=== PATIENT | female | born 1985 | race Hispanic/Latino ===

== ENCOUNTER 2016-05-02 16:21 | Emergency (ER) | payer OTHER ==
[~2016-05-02] VITALS: Ht 162.6 cm; Wt 106.6 kg
[2016-05-02] MEDS ORDERED: NORCO, ANEXSIA 5/325MG TABLET (HYDROcodone/ACETAMINOPHEN) As Ordered ONE (17:32)
[2016-05-02] MEDS ORDERED: NAPROXEN 250 MG TAB As Ordered ONE (17:32)
[2016-05-02] MEDS ORDERED: PENICILLIN V POTASSIUM 500 MG TAB PO ONE (17:45)
--- NOTE | 2016-05-02 18:02 | EDDOCDS ---
Nurse's Notes [facility] Name: Zuleima Ely Age: 31 yrs Sex: Female : 1985 Arrival Date: 05/02/2016 Time: 16:21 Bed I1 23 Private MD: NO PRIMARY PHYSICIAN, . Diagnosis: Dental caries;Jaw pain Presentation: 05/02 17:04 Presenting complaint: Patient states: tooth ache since last night. Adult Sepsis rs3 Screening: The patient does not have new or worsening altered mentation. Patient's respiratory rate is less than 22. Systolic blood pressure is greater than 100. Patient has a qSOFA score of 0- Negative Sepsis Screen. Suicide/Homicide risk assessment- the patient denies having any suicidal and/or homicidal ideations and does not present with any other emotional, behavioral or mental health complaints. Status: Patient is not a light fixture servicer or dependent. Transition of care: patient was not received from another setting of care. 17:04 Acuity: JOLENE Level 5 rs3 17:04 Method Of Arrival: Walkin/Carried/Asstd rs3 Triage Assessment: 17:06 General: Appears in no apparent distress. Pain: Location: mouth. HIV screening NA for rs3 this visit Offered previously. EENT: Reports pain Pain is 9 out of 10 on a pain scale. Historical: - Allergies: no known allergies; - Home Meds: 1. Tylenol 500 Oral - PMHx: none; - PSHx: Cervical Fusion; Myringotomy; left ear surgery; - Social history: Smoking status: Patient uses tobacco products, light tobacco smoker. No barriers to communication noted, The patient speaks fluent Swedish. - Family history: Not pertinent. - : The pt / caregiver states he / she is not on anticoagulants. Home medication list is obtained from the patient. - Exposure Risk Screening:: None identified. Screenin:52 Screening information is obtained from the patient. Fall risk: No risks identified. hs1 Assistance ADL's: requires no assistance with activities of daily living. Abuse/DV Screen: The patient / caregiver reports he/she is: not in a situation that causes fear, pain or injury. Nutritional screening: No deficits noted. Advance Directives: There is no active DNR order. home support is adequate. Assessment: 17:34 General: Appears uncomfortable, Behavior is appropriate for age, cooperative. Pain: hs1 Location: mouth Pain currently is 9 out of 10 on a pain scale. Cardiovascular: No deficits noted. Respiratory: Airway is patent Respiratory effort is even, unlabored, Respiratory pattern is regular, symmetrical. Derm: Skin is pink, warm & dry. normal. Vital Signs: 16:23 BP 159 / 88; Pulse 90; Resp 18 S; Temp 98.3(O); Pulse Ox 100% on R/A; Weight 106.59 kg dd6 (R); Height 5 ft. 4 in. (162.56 cm) (R); Pain 8/10; 17:51 BP 164 / 84 RA Sitting (auto/reg); Pulse 85; Resp 18; Temp 98.4(O); Pulse Ox 98% on jrd R/A; Pain 10/10; 16:23 Body Mass Index 40.34 (106.59 kg, 162.56 cm) dd6 Vitals: 16:23 Log In Time: May 02, 2016 at 16:19. dd6 ED Course: 16:23 Patient visited by Korey Booker PCA. dd6 16:23 NO PRIMARY PHYSICIAN, . is Private Physician. dd6 16:23 Patient moved to Waiting dd6 16:24 Patient moved to Pre RCE dd6 16:54 [facility] 16:54 Patient moved to I10 / 23 dls 17:05 Patient visited by Nacny Franco FNP. le 17:05 Patient visited by Nancy Franco FNP. le 17:05 Triage Initiated rs3 17:19 Nikolas Marquez is Referral Physician. le 17:19 Marko Ford is Referral Physician. le 17:24 [facility] Payment Agreement was scanned into [employer] and attached to record. zo 17:51 Patient visited by Trevor Rainey PCA. jrd 17:53 No IV's were initiated during this patient's visit. No procedures done that require hs1 assistance. 17:54 The patient / caregiver is instructed regarding the plan of care and ED course. hs1 Administered Medications: 17:39 Drug: Naproxen 500 mg [naproxen 250 mg tablet (2 tabs)] Route: PO; hs1 17:52 Follow up: Response: Pt left department before re-evaluation is appropriate hs1 17:51 Drug: HYDROcodone-acetaminophen 1 tabs [hydrocodone 5 mg-acetaminophen 325 mg tablet (1 hs1 tabs)] Route: PO; 17:51 Follow up: Response: Confirmed pt not driving.; Pt left department before re-evaluation hs1 is appropriate 17:51 Drug: Penicillin VK 500 mg [penicillin V potassium 250 mg tablet (2 tabs)] Route: PO; hs1 17:52 Follow up: Response: No significant change. hs1 Order Results: There are currently no results for this order. Outcome: 17:20 Discharge ordered by Provider. le 17:53 Discharge Assessment: Patient awake, alert and oriented x 3. No cognitive and/or hs1 functional deficits noted. Patient verbalized understanding of disposition instructions. patient administered narcotics - yes. Pt provided with safe discharge. The following High Risk Discharge criteria are identified: None. Discharged to home ambulatory. Condition: stable. Discharge instructions given to patient, Instructed on discharge instructions, follow up and referral plans. medication usage, Demonstrated understanding of instructions, medications, Pt was receptive of discharge instructions/ teaching. Prescriptions given X 3. No special radiology studies were completed. Property sent home with patient. 18:02 Patient left the ED. hs1 Signatures: Kasandra Langley, RN RN dls Sara Lr Lisa, BUSINESS PROCESS CONSULTANT BUSINESS PROCESS CONSULTANT Korey Toledo, ELECTRIC METER INSTALLER HELPER ELECTRIC METER INSTALLER HELPER dd6 Danielle rTuong RN RN rs3 Tri Gaona RN RN hs1 Trevor Rainey, ELECTRIC METER INSTALLER HELPER ELECTRIC METER INSTALLER HELPER jrd MTDD
--- NOTE | 2016-05-02 18:02 | EDDOCDS ---
Physician Documentation [facility] Name: Zuleima Ely Age: 31 yrs Sex: Female : 1985 Arrival Date: 05/02/2016 Time: 16:21 Bed I1 Private MD: NO PRIMARY PHYSICIAN, . Disposition: 05/02 17:22 Critical Care: Critical care not applicable. le Disposition: 05/02/16 17:20 Discharged to Home/Self Care. Impression: Dental caries, Jaw pain. - Condition is Stable. - Discharge Instructions: Dental Pain. - Prescriptions for Naprosyn 500 mg Oral Tablet - take 1 tablet by ORAL route 2 times per day take with food; 30 tablet. [place] 5- 325 mg Oral Tablet - take 1 tablet by ORAL route every 6 hours As needed MDD: 4 tabs; 6 tablet. penicillin V potassium 500 mg Oral Tablet - take 1 tablet by ORAL route 4 times per day for 10 days; 40 tablet. - Medication Reconciliation, Local Pharmacy Hours form. - Follow up: Nikolas Marquez; When: Call to arrange an appointment; Reason: Recheck today's complaints, Continuance of care. Follow up: Your, Dentist; When: 1 - 2 days; Reason: Recheck today's complaints, Continuance of care. - Problem is an acute exacerbation. - Symptoms are unchanged. - Notes: Return to the ED for facial swelling, inablity to open your mouth more than the width of 2 fingers, difficulty swallowing/drooling, fever >101.5, difficulty breathing or any other concerns Historical: - Allergies: no known allergies; - Home Meds: 1. Tylenol 500 Oral - PMHx: none; - PSHx: Cervical Fusion; Myringotomy; left ear surgery; - Social history: Smoking status: Patient uses tobacco products, light tobacco smoker. No barriers to communication noted, The patient speaks fluent Romanian. - Family history: Not pertinent. - : The pt / caregiver states he / she is not on anticoagulants. Home medication list is obtained from the patient. - Exposure Risk Screening:: None identified. Vital Signs: 16:23 BP 159 / 88; Pulse 90; Resp 18 S; Temp 98.3(O); Pulse Ox 100% on R/A; Weight 106.59 kg dd6 / 234.99 lbs (R); Height 5 ft. 4 in. (162.56 cm) (R); Pain 8/10; 17:51 BP 164 / 84 RA Sitting (auto/reg); Pulse 85; Resp 18; Temp 98.4(O); Pulse Ox 98% on jrd R/A; Pain 10/10; 16:23 Body Mass Index 40.34 (106.59 kg, 162.56 cm) dd6 MDM: 17:13 HYDROcodone-acetaminophen 5 mg-325 mg 1 tabs PO once ordered. le 17:13 Naproxen 500 mg PO once; administer with food or milk ordered. le 17:13 Penicillin VK 500 mg PO once ordered. le 17:23 Financial registration complete. zo 17:24 [facility] Payment Agreement was scanned into [employer] and attached to record. zo Administered Medications: 17:39 Drug: Naproxen 500 mg [naproxen 250 mg tablet (2 tabs)] Route: PO; hs1 17:52 Follow up: Response: Pt left department before re-evaluation is appropriate hs1 17:51 Drug: HYDROcodone-acetaminophen 1 tabs [hydrocodone 5 mg-acetaminophen 325 mg tablet (1 hs1 tabs)] Route: PO; 17:51 Follow up: Response: Confirmed pt not driving.; Pt left department before re-evaluation hs1 is appropriate 17:51 Drug: Penicillin VK 500 mg [penicillin V potassium 250 mg tablet (2 tabs)] Route: PO; hs1 17:52 Follow up: Response: No significant change. hs1 Signatures: Sara Lr Lisa, Danielle Ortega RN RN rs3 Tri Gaona RN RN hs1 The chart was reviewed and I authenticate all verbal orders and agree with the evaluation and treatment provided.Attachments: 17:24 [facility] Payment Agreement zo MTDD
--- NOTE | 2016-05-04 19:03 | EDDOCDS ---
Physician Documentation [facility] Name: Zuleima Ely Age: 31 yrs Sex: Female : 1985 Arrival Date: 05/02/2016 Time: 16:21 Bed I1 Private MD: NO PRIMARY PHYSICIAN, . Disposition: 05/02 17:22 Critical Care: Critical care not applicable. le Disposition: 05/02/16 17:20 Discharged to Home/Self Care. Impression: Dental caries, Jaw pain. - Condition is Stable. - Discharge Instructions: Dental Pain. - Prescriptions for Naprosyn 500 mg Oral Tablet - take 1 tablet by ORAL route 2 times per day take with food; 30 tablet. [place] 5- 325 mg Oral Tablet - take 1 tablet by ORAL route every 6 hours As needed MDD: 4 tabs; 6 tablet. penicillin V potassium 500 mg Oral Tablet - take 1 tablet by ORAL route 4 times per day for 10 days; 40 tablet. - Medication Reconciliation, Local Pharmacy Hours form. - Follow up: Nikolas Marquez; When: Call to arrange an appointment; Reason: Recheck today's complaints, Continuance of care. Follow up: Your, Dentist; When: 1 - 2 days; Reason: Recheck today's complaints, Continuance of care. - Problem is an acute exacerbation. - Symptoms are unchanged. - Notes: Return to the ED for facial swelling, inablity to open your mouth more than the width of 2 fingers, difficulty swallowing/drooling, fever >101.5, difficulty breathing or any other concerns Historical: - Allergies: no known allergies; - Home Meds: 1. Tylenol 500 Oral - PMHx: none; - PSHx: Cervical Fusion; Myringotomy; left ear surgery; - Social history: Smoking status: Patient uses tobacco products, light tobacco smoker. No barriers to communication noted, The patient speaks fluent Croatian. - Family history: Not pertinent. - : The pt / caregiver states he / she is not on anticoagulants. Home medication list is obtained from the patient. - Exposure Risk Screening:: None identified. Vital Signs: 16:23 BP 159 / 88; Pulse 90; Resp 18 S; Temp 98.3(O); Pulse Ox 100% on R/A; Weight 106.59 kg dd6 / 234.99 lbs (R); Height 5 ft. 4 in. (162.56 cm) (R); Pain 8/10; 17:51 BP 164 / 84 RA Sitting (auto/reg); Pulse 85; Resp 18; Temp 98.4(O); Pulse Ox 98% on jrd R/A; Pain 10/10; 16:23 Body Mass Index 40.34 (106.59 kg, 162.56 cm) dd6 MDM: 17:13 HYDROcodone-acetaminophen 5 mg-325 mg 1 tabs PO once ordered. le 17:13 Naproxen 500 mg PO once; administer with food or milk ordered. le 17:13 Penicillin VK 500 mg PO once ordered. le 17:23 Financial registration complete. zo 17:24 [facility] Payment Agreement was scanned into [employer] system and attached to record. zo 21:43 T-Sheet-- Draft Copy was scanned into [employer] system and attached to record. klr Administered Medications: 17:39 Drug: Naproxen 500 mg [naproxen 250 mg tablet (2 tabs)] Route: PO; hs1 17:52 Follow up: Response: Pt left department before re-evaluation is appropriate hs1 17:51 Drug: HYDROcodone-acetaminophen 1 tabs [hydrocodone 5 mg-acetaminophen 325 mg tablet (1 hs1 tabs)] Route: PO; 17:51 Follow up: Response: Confirmed pt not driving.; Pt left department before re-evaluation hs1 is appropriate 17:51 Drug: Penicillin VK 500 mg [penicillin V potassium 250 mg tablet (2 tabs)] Route: PO; hs1 17:52 Follow up: Response: No significant change. hs1 Signatures: Sara Lr Lisa, PATIENT INSURANCE CLERK PATIENT INSURANCE CLERKDanielle SonRN RN rs3 Tri Gaona RN RN hs1 Kayleen Irwin klr The chart was reviewed and I authenticate all verbal orders and agree with the evaluation and treatment provided.Attachments: 17:24 [facility] Payment Agreement zo 21:43 T-Sheet-- Draft Copy klr Chart Complete MTDD
--- NOTE | 2016-05-04 19:03 | EDDOCDS ---
Nurse's Notes [facility] Name: Zuleima Ely Age: 31 yrs Sex: Female : 1985 Arrival Date: 05/02/2016 Time: 16:21 Bed I1 23 Private MD: NO PRIMARY PHYSICIAN, . Diagnosis: Dental caries;Jaw pain Presentation: 05/02 17:04 Presenting complaint: Patient states: tooth ache since last night. Adult Sepsis rs3 Screening: The patient does not have new or worsening altered mentation. Patient's respiratory rate is less than 22. Systolic blood pressure is greater than 100. Patient has a qSOFA score of 0- Negative Sepsis Screen. Suicide/Homicide risk assessment- the patient denies having any suicidal and/or homicidal ideations and does not present with any other emotional, behavioral or mental health complaints. Status: Patient is not a automotive service technician or dependent. Transition of care: patient was not received from another setting of care. 17:04 Acuity: JOLENE Level 5 rs3 17:04 Method Of Arrival: Walkin/Carried/Asstd rs3 Triage Assessment: 17:06 General: Appears in no apparent distress. Pain: Location: mouth. HIV screening NA for rs3 this visit Offered previously. EENT: Reports pain Pain is 9 out of 10 on a pain scale. Historical: - Allergies: no known allergies; - Home Meds: 1. Tylenol 500 Oral - PMHx: none; - PSHx: Cervical Fusion; Myringotomy; left ear surgery; - Social history: Smoking status: Patient uses tobacco products, light tobacco smoker. No barriers to communication noted, The patient speaks fluent Gabonese. - Family history: Not pertinent. - : The pt / caregiver states he / she is not on anticoagulants. Home medication list is obtained from the patient. - Exposure Risk Screening:: None identified. Screenin:52 Screening information is obtained from the patient. Fall risk: No risks identified. hs1 Assistance ADL's: requires no assistance with activities of daily living. Abuse/DV Screen: The patient / caregiver reports he/she is: not in a situation that causes fear, pain or injury. Nutritional screening: No deficits noted. Advance Directives: There is no active DNR order. home support is adequate. Assessment: 17:34 General: Appears uncomfortable, Behavior is appropriate for age, cooperative. Pain: hs1 Location: mouth Pain currently is 9 out of 10 on a pain scale. Cardiovascular: No deficits noted. Respiratory: Airway is patent Respiratory effort is even, unlabored, Respiratory pattern is regular, symmetrical. Derm: Skin is pink, warm & dry. normal. Vital Signs: 16:23 BP 159 / 88; Pulse 90; Resp 18 S; Temp 98.3(O); Pulse Ox 100% on R/A; Weight 106.59 kg dd6 (R); Height 5 ft. 4 in. (162.56 cm) (R); Pain 8/10; 17:51 BP 164 / 84 RA Sitting (auto/reg); Pulse 85; Resp 18; Temp 98.4(O); Pulse Ox 98% on jrd R/A; Pain 10/10; 16:23 Body Mass Index 40.34 (106.59 kg, 162.56 cm) dd6 Vitals: 16:23 Log In Time: May 02, 2016 at 16:19. dd6 ED Course: 16:23 Patient visited by Korey Booker PCA. dd6 16:23 NO PRIMARY PHYSICIAN, . is Private Physician. dd6 16:23 Patient moved to Waiting dd6 16:24 Patient moved to Pre RCE dd6 16:54 [facility] le 16:54 Patient moved to I10 / 23 dls 17:05 Patient visited by Nancy Franco FNP. le 17:05 Patient visited by Nancy Franco FNP. le 17:05 Triage Initiated rs3 17:19 Nikolas Marquez is Referral Physician. le 17:19 Marko Ford is Referral Physician. le 17:24 [facility] Payment Agreement was scanned into [employer] and attached to record. zo 17:51 Patient visited by Trevor Rainey PCA. jrd 17:53 No IV's were initiated during this patient's visit. No procedures done that require hs1 assistance. 17:54 The patient / caregiver is instructed regarding the plan of care and ED course. hs1 21:43 T-Sheet-- Draft Copy was scanned into [employer] and attached to record. klr Administered Medications: 17:39 Drug: Naproxen 500 mg [naproxen 250 mg tablet (2 tabs)] Route: PO; hs1 17:52 Follow up: Response: Pt left department before re-evaluation is appropriate hs1 17:51 Drug: HYDROcodone-acetaminophen 1 tabs [hydrocodone 5 mg-acetaminophen 325 mg tablet (1 hs1 tabs)] Route: PO; 17:51 Follow up: Response: Confirmed pt not driving.; Pt left department before re-evaluation hs1 is appropriate 17:51 Drug: Penicillin VK 500 mg [penicillin V potassium 250 mg tablet (2 tabs)] Route: PO; hs1 17:52 Follow up: Response: No significant change. hs1 Order Results: There are currently no results for this order. Outcome: 17:20 Discharge ordered by Provider. le 17:53 Discharge Assessment: Patient awake, alert and oriented x 3. No cognitive and/or hs1 functional deficits noted. Patient verbalized understanding of disposition instructions. patient administered narcotics - yes. Pt provided with safe discharge. The following High Risk Discharge criteria are identified: None. Discharged to home ambulatory. Condition: stable. Discharge instructions given to patient, Instructed on discharge instructions, follow up and referral plans. medication usage, Demonstrated understanding of instructions, medications, Pt was receptive of discharge instructions/ teaching. Prescriptions given X 3. No special radiology studies were completed. Property sent home with patient. 18:02 Patient left the ED. hs1 Signatures: Kasandra Langley RN Sara Sutherland Lisa, HOT CAR CHARGER HOT CAR CHARGER Korey Toledo, JAVA FRONT END WEB DEVELOPER JAVA FRONT END WEB DEVELOPER dd6 Danielle Truong RN RN rs3 Tri Gaona RN RN hs1 Trevor Rainey, JAVA FRONT END WEB DEVELOPER JAVA FRONT END WEB DEVELOPER jrd Kayleen Irwin Chart Complete MTDD
--- NOTE | 2016-05-04 19:03 | EDDOCDS ---
Physician Documentation [facility] Name: Zuleima Ely Age: 31 yrs Sex: Female : 1985 Arrival Date: 05/02/2016 Time: 16:21 Bed I1 Private MD: NO PRIMARY PHYSICIAN, . Disposition: 05/02 17:22 Critical Care: Critical care not applicable. le Disposition: 05/02/16 17:20 Discharged to Home/Self Care. Impression: Dental caries, Jaw pain. - Condition is Stable. - Discharge Instructions: Dental Pain. - Prescriptions for Naprosyn 500 mg Oral Tablet - take 1 tablet by ORAL route 2 times per day take with food; 30 tablet. [place] 5- 325 mg Oral Tablet - take 1 tablet by ORAL route every 6 hours As needed MDD: 4 tabs; 6 tablet. penicillin V potassium 500 mg Oral Tablet - take 1 tablet by ORAL route 4 times per day for 10 days; 40 tablet. - Medication Reconciliation, Local Pharmacy Hours form. - Follow up: Nikolas Marquez; When: Call to arrange an appointment; Reason: Recheck today's complaints, Continuance of care. Follow up: Your, Dentist; When: 1 - 2 days; Reason: Recheck today's complaints, Continuance of care. - Problem is an acute exacerbation. - Symptoms are unchanged. - Notes: Return to the ED for facial swelling, inablity to open your mouth more than the width of 2 fingers, difficulty swallowing/drooling, fever >101.5, difficulty breathing or any other concerns Historical: - Allergies: no known allergies; - Home Meds: 1. Tylenol 500 Oral - PMHx: none; - PSHx: Cervical Fusion; Myringotomy; left ear surgery; - Social history: Smoking status: Patient uses tobacco products, light tobacco smoker. No barriers to communication noted, The patient speaks fluent Divehi. - Family history: Not pertinent. - : The pt / caregiver states he / she is not on anticoagulants. Home medication list is obtained from the patient. - Exposure Risk Screening:: None identified. Vital Signs: 16:23 BP 159 / 88; Pulse 90; Resp 18 S; Temp 98.3(O); Pulse Ox 100% on R/A; Weight 106.59 kg dd6 / 234.99 lbs (R); Height 5 ft. 4 in. (162.56 cm) (R); Pain 8/10; 17:51 BP 164 / 84 RA Sitting (auto/reg); Pulse 85; Resp 18; Temp 98.4(O); Pulse Ox 98% on jrd R/A; Pain 10/10; 16:23 Body Mass Index 40.34 (106.59 kg, 162.56 cm) dd6 MDM: 17:13 HYDROcodone-acetaminophen 5 mg-325 mg 1 tabs PO once ordered. le 17:13 Naproxen 500 mg PO once; administer with food or milk ordered. le 17:13 Penicillin VK 500 mg PO once ordered. le 17:23 Financial registration complete. zo 17:24 [facility] Payment Agreement was scanned into [employer] and attached to record. zo 21:43 T-Sheet-- Draft Copy was scanned into [employer] and attached to record. klr Administered Medications: 17:39 Drug: Naproxen 500 mg [naproxen 250 mg tablet (2 tabs)] Route: PO; hs1 17:52 Follow up: Response: Pt left department before re-evaluation is appropriate hs1 17:51 Drug: HYDROcodone-acetaminophen 1 tabs [hydrocodone 5 mg-acetaminophen 325 mg tablet (1 hs1 tabs)] Route: PO; 17:51 Follow up: Response: Confirmed pt not driving.; Pt left department before re-evaluation hs1 is appropriate 17:51 Drug: Penicillin VK 500 mg [penicillin V potassium 250 mg tablet (2 tabs)] Route: PO; hs1 17:52 Follow up: Response: No significant change. hs1 Signatures: Sara Lr Lisa, FURNACE INSTALLER HELPER FURNACE INSTALLER HELPERDanielle SonRN RN rs3 Tri Gaona RN RN hs1 Kayleen Irwin klr The chart was reviewed and I authenticate all verbal orders and agree with the evaluation and treatment provided.Attachments: 17:24 [facility] Payment Agreement zo 21:43 T-Sheet-- Draft Copy klr Chart Complete MTDD
== END 2016-05-02 18:02 | disposition home or self-care (01) ==
LOC: M ED 16:21
DX: K02.9 Dental caries, unspecified (principal); R68.84 Jaw pain; K08.9 Disorder of teeth and supporting structures, unspecified; F17.210 Nicotine dependence, cigarettes, uncomplicated